=== PATIENT | female | born 1950 | race Caucasian/White ===

== ENCOUNTER 2022-09-23 10:32 | Emergency (ER) | payer MEDICARE ==
[~2022-09-23] VITALS: Ht 162.6 cm; Wt 59.0 kg
[2022-09-23] MEDS ORDERED: IV NORMAL SALINE 500 ML BAG IV ONE (11:00)
[2022-09-23] MEDS ORDERED: METOCLOPRAMIDE HCL 10 MG/2 ML VIAL IV ONE (11:00)
[2022-09-23] MEDS ORDERED: KETOROLAC TROMETHAMINE 15 MG INJ IVP ONE (11:00)
[2022-09-23] MEDS ORDERED: ACETAMINOPHEN 650 MG/20.3 ML LIQUID UDC PO ONE (11:00)
[2022-09-23] MEDS ORDERED: MAGNESIUM SULFATE/D5W 0 ML ONE (11:03)
[2022-09-23] MEDS ORDERED: METOCLOPRAMIDE HCL 10 MG/2 ML VIAL ONE (11:03)
[2022-09-23] MEDS ORDERED: ACETAMINOPHEN 325 MG TABLET ONE (11:03)
[2022-09-23] MEDS ORDERED: KETOROLAC TROMETHAMINE 15 MG INJ ONE (11:03)
[2022-09-23] MEDS ORDERED: ROSU5TAB PO (11:05)
[2022-09-23] MEDS ORDERED: LEVO100T10 PO (11:05)
[2022-09-23] MEDS ORDERED: [UNRECOGNIZED DRUG - REMARK] SQ (11:05)
[2022-09-23] MEDS ORDERED: INSU100I24 SQ (11:05)
[2022-09-23 11:06] LABS: HEMATOCRIT 39.5 % (31.2-41.9); MEAN CORPUSCULAR HEMOGLOBIN 30.1 uug (24.7-32.8); MEAN CORPUSCULAR VOLUME 89.4 fL (75.5-95.3); PLATELET COUNT (AUTO) 267 K/uL (179-408)
[2022-09-23] MEDS: MAGNESIUM SULFATE/D5W 100 ML IV SCH ×2 (11:10→12:00)
[2022-09-23 11:16] LABS: CREATININE 0.9 mg/dL (0.6-1.3); POTASSIUM 3.9 mmol/L (3.5-5.1)
[2022-09-23 11:22] LABS: BILIRUBIN,TOTAL 1.4 mg/dL (0.2-1.0); MAGNESIUM 1.8 mg/dL (1.8-2.4); PHOSPHOROUS 4.2 mg/dL (2.5-4.9); TOTAL PROTEIN, SERUM 7.2 g/dL (6.4-8.2)
[2022-09-23] MEDS ORDERED: PROPARACAINE 0.5% OPHT DROP 15 ML BOTTLE ONE (11:59)
[2022-09-23] MEDS ORDERED: PROPARACAINE 0.5% OPHT DROP 15 ML BOTTLE OP ONE (12:00)
[2022-09-23] MEDS ORDERED: MAGNESIUM SULFATE/D5W 100 ML ONE (12:11)
--- NOTE | 2022-09-23 12:43 | NUR ---
IV removed. Catheter intact and site benign. Pressure and 4x4 gauze applied to site. No bleeding noted. Patient discharged to home in stable condition with brisk steady. Written and verbal after care instructions given to patient and daughter. Patient and family verbalized understanding and compliance of instructions. Stressed follow up with primary doctor and neurologist or return to ER for worsening s/s.
== END 2022-09-23 12:43 | disposition home or self-care (01) ==
LOC: ER 10:32
DX: R51.9 Headache, unspecified (principal); E03.9 Hypothyroidism, unspecified; E78.5 Hyperlipidemia, unspecified; Z79.890 Hormone replacement therapy; E10.9 Type 1 diabetes mellitus without complications; Z79.4 Long term (current) use of insulin
CPT/HCPCS: 99284; 96365; 70450; 96375; 80053; 83735; 84100; 85025; 36415; J1885; J3475; J2765; J7040; A4663